=== PATIENT | male | born 1985 | race Two or more races ===

== ENCOUNTER 2019-06-03 15:16 | Inpatient (IN) | payer OTHER ==
[~2019-06-03] VITALS: Ht 170.2 cm; Wt 60.3 kg
--- NOTE | 2019-06-03 15:26 | NUR ---
PT BIBRA C/O L FLANK PAIN 10/10 +N/V. PLACED ON MONITOR AND PULSE OX. MD AT BEDSIDE. LABS COLLECTED AND SENT TO LAB.
[2019-06-03] MEDS ORDERED: KETOROLAC TROMETHAMINE INJ 30 MG/ML VIAL IV ONE (15:30)
[2019-06-03] MEDS ORDERED: IV NS 0.9% 1,000 ML BAG IV ONE (15:30)
[2019-06-03] MEDS ORDERED: ONDANSETRON HCL/PF 4 MG/2 ML VIAL ONE (15:30)
[2019-06-03] MEDS ORDERED: KETOROLAC TROMETHAMINE 15 MG/ML VIAL ONE (15:30)
[2019-06-03] MEDS ORDERED: ONDANSETRON HCL/PF 4 MG/2 ML VIAL IVP ONE (15:30)
[2019-06-03 15:35] LABS: BASOPHILS # (AUTO) 0.3 /CMM (0.0-0.2); BASOPHILS % (AUTO) 1.3 % (0.0-2.0); EOSINOPHILS % (AUTO) 0.6 % (0.0-6.0); HEMATOCRIT 46 % (39-51); HEMOGLOBIN 14.7 g/dL (13.5-17.5); LYMPHOCYTES # (AUTO) 3.2 /CMM (0.8-4.8); LYMPHOCYTES % (AUTO) 16.3 % (20.0-44.0); MEAN CORPUSCULAR HGB CONC 32 g/dl (31.0-36.0); MEAN CORPUSCULAR VOLUME 82 fL (80-96); NEUTROPHILS # (AUTO) 15.3 /CMM (1.8-8.9); NEUTROPHILS % (AUTO) 76.8 % (43.0-81.0); PLATELET COUNT (AUTO) 273 /CMM (150-450); RED BLOOD CELL COUNT(AUTO) 5.57 MIL/uL (4.5-6.0); WHITE BLOOD COUNT (AUTO) 19.9 K/uL (4.3-11.0)
[2019-06-03 15:45] LABS: ALBUMIN 4.5 g/dL (3.4-5.0); BILIRUBIN,DIRECT 0.1 mg/dL (0.0-0.2); BILIRUBIN,TOTAL 0.7 mg/dL (0.2-1.0); CALCIUM, SERUM 10.2 mg/dL (8.5-10.1); POTASSIUM 4.1 mmol/L (3.5-5.1); TOTAL PROTEIN, SERUM 7.9 g/dL (6.4-8.2)
--- NOTE | 2019-06-03 15:56 | NUR ---
URINE COLLECTED THROUGH CATHETER 200CC CLEAR
[2019-06-03] MEDS ORDERED: MORPHINE SULFATE INJ 2 MG/ML DISP.SYRIN IV ONE ×2 (16:00→17:30)
[2019-06-03] MEDS ORDERED: MORPHINE SULFATE INJ 4 MG/ML DISP.SYRIN ONE ×2 (16:02→17:24)
[2019-06-03 16:03] LABS: APPEARANCE,URINE Clear (CLEAR); BILIRUBIN,URINE Negative (NEGATIVE); BLOOD, URINE Negative Ery/uL (NEGATIVE); COLOR,URINE Yellow (YELLOW); KETONES,URINE 15 (NEGATIVE); LEUKOCYTE ESTERASE ,URINE Negative (NEGATIVE); NITRITE, URINE Negative (NEGATIVE); PROTEIN,URINE Negative (NEGATIVE); UGLUCOSE Negative (NEGATIVE); UROBILINOGEN,URINE 0.2 EU/dL (0.2)
[2019-06-03] MEDS ORDERED: CT SWABBABLE VALVE TRANS SET 1 EA INFUS.SET MC ONE (16:15)
[2019-06-03] MEDS ORDERED: IV NS 0.9% 250 ML IV ONE (16:15)
[2019-06-03] MEDS ORDERED: IOHEXOL-300 100 ML VIAL IV ONE (16:15)
--- NOTE | 2019-06-03 16:40 | NUR ---
PT RAFAEL TO CT
[2019-06-03] MEDS ORDERED: predniSONE 10 MG TABLET ONE (17:24)
[2019-06-03] MEDS ORDERED: predniSONE 20 MG TABLET ONE (17:25)
[2019-06-03] MEDS ORDERED: CIPROFLOXACIN IV RTU 400 MG in PREMIX 1 EA IV SCH (17:30)
[2019-06-03] MEDS ORDERED: predniSONE 50 MG TABLET PO ONE (17:30)
--- NOTE | 2019-06-03 17:32 | NUR ---
PAGED [facility].
--- NOTE | 2019-06-03 17:32 | NUR ---
CALLED NURSING SUP FOR M/S BED.
--- NOTE | 2019-06-03 17:47 | NUR ---
Patient is resting comfortably in bed. Easily aroused. VSS.
--- NOTE | 2019-06-03 17:56 | NUR ---
NURSING SUP GAVE M/S 309-2.
--- NOTE | 2019-06-03 18:13 | NUR ---
REPORT GIVEN TO LAURA CERVANTES FOR FAUSTINO.
--- NOTE | 2019-06-03 18:42 | NUR ---
PAGED EPIC SECOND TIME.
--- NOTE | 2019-06-03 19:12 | NUR ---
Patient is resting comfortably in bed. Easily aroused. VSS. PARTNER AT BEDSIDE.
[2019-06-03] MEDS ORDERED: IV NS 0.9% 1,000 ML IV PRN (19:36)
[2019-06-03] MEDS ORDERED: HYDROMORPHONE 1 MG/1 ML DISP.SYRIN ONE (19:46)
--- NOTE | 2019-06-03 19:57 | NUR ---
PT TRANSFERED TO M/S.
[2019-06-03 20:00] VITALS: BP 102/60
[2019-06-03] MEDS ORDERED: HYDROMORPHONE INJ 0.5 MG/0.5 ML SYRINGE IV PRN (20:00)
[2019-06-03] MEDS ORDERED: MORPHINE SULFATE INJ 2 MG/ML DISP.SYRIN IV PRN (20:00)
[2019-06-03] MEDS ORDERED: MAG HYDROX/AL HYDROX/SIMETH 30 ML UDC PO PRN (20:00)
[2019-06-03] MEDS ORDERED: ACETAMINOPHEN 325 MG TABLET PO PRN (20:00)
[2019-06-03] MEDS ORDERED: MAGNESIUM HYDROXIDE 30 ML UDC PO PRN (20:00)
[2019-06-03] MEDS ORDERED: Z GUARD REMEDY 2 OZ OINT TP PRN (20:00)
[2019-06-03] MEDS: ONDANSETRON HCL/PF 4 MG/2 ML VIAL IVP PRN (20:26)
[2019-06-03] MEDS: METRONIDAZOLE 500 MG TABLET PO SCH (20:26)
[2019-06-03] MEDS: ENOXAPARIN SODIUM 40 MG/0.4 ML DISP.SYRIN SQ SCH (20:35)
[2019-06-03] MEDS ORDERED: CIPROFLOXACIN HCL 250 MG TABLET PO SCH (21:00)
[2019-06-03] MEDS: HYDROCODONE/APAP 5/325MG 1 EACH TABLET PO PRN (22:24)
[2019-06-04] MEDS: ONDANSETRON HCL/PF 4 MG/2 ML VIAL IVP PRN ×4 (03:29→23:08)
[2019-06-04] MEDS: HYDROCODONE/APAP 5/325MG 1 EACH TABLET PO PRN ×2 (03:29→08:19)
[2019-06-04] MEDS: METRONIDAZOLE 500 MG TABLET PO SCH ×3 (05:21→21:07)
--- NOTE | 2019-06-04 06:26 | NUR ---
MS RN NOTES AWAKE & RESPONSIVE. NOT IN ANY DISTRESS. NO SOB NOTED. DENIES ANY PAIN OR DISCOMFORT AT THIS TIME. WITH IV-HL PATENT & INTACT. MONITORED ACCORDINGLY. CALL LIGHT WITHIN REACH. BED IN LOWEST POSITION. SR UP X 3 FOR SAFETY. WILL ENDORSE TO NEXT SHIFT.
[2019-06-04 06:47] LABS: BASOPHILS % (AUTO) 0.2 % (0.0-2.0); HEMATOCRIT 39 % (39-51); HEMOGLOBIN 12.6 g/dL (13.5-17.5); LYMPHOCYTES # (AUTO) 1.6 /CMM (0.8-4.8); MEAN CORPUSCULAR HGB CONC 32 g/dl (31.0-36.0); MEAN CORPUSCULAR VOLUME 82 fL (80-96); MONOCYTES # (AUTO) 0.5 /CMM (0.1-1.30); MONOCYTES % (AUTO) 3.2 % (2.0-12.0); NEUTROPHILS % (AUTO) 86.6 % (43.0-81.0); PLATELET COUNT (AUTO) 219 /CMM (150-450); RED BLOOD CELL COUNT(AUTO) 4.82 MIL/uL (4.5-6.0); WHITE BLOOD COUNT (AUTO) 16.1 K/uL (4.3-11.0)
[2019-06-04 07:05] LABS: THYROID STIMULATING HORMONE 0.411 uIU/mL (0.358-3.74)
[2019-06-04 07:29] LABS: CALCIUM, SERUM 8.7 mg/dL (8.5-10.1); CREATININE 0.9 mg/dL (0.6-1.3); POTASSIUM 3.6 mmol/L (3.5-5.1)
[2019-06-04] MEDS: CIPROFLOXACIN HCL 500 MG TABLET PO SCH ×2 (08:19→21:07)
[2019-06-04] MEDS: predniSONE 20 MG TABLET PO SCH (08:19)
[2019-06-04 08:26] VITALS: BP 148/59
[2019-06-04] MEDS ORDERED: TAMS-12 PO (09:41)
[2019-06-04] MEDS ORDERED: CLON0.5T4 PO (09:41)
[2019-06-04] MEDS ORDERED: clonazePAM 0.5 MG TABLET PO PRN (12:00)
[2019-06-04] MEDS: HYDROMORPHONE 1 MG/1 ML DISP.SYRIN IV PRN ×3 (12:45→23:08)
[2019-06-04 16:15] VITALS: BP 102/69
--- NOTE | 2019-06-04 19:05 | NUR ---
MS RN NOTE RECEIVED PT IN STABLE CONDITION A/O X 4, GUEST AT BEDSIDE. NO SIGNS OF SOB OR DISTRESS, NO C/O PAIN OR NAUSEA. IV IN R AC #[address] WITH IVF INFUSING. ALL CURRENT NEEDS ATTENDED TO. BED LOW, LOCKED, UPPER RAILS UP, AND CALL LIGHT WITHIN REACH, WILL CONT. TO MONITOR.
[2019-06-04 20:00] VITALS: BP 107/63
[2019-06-04] MEDS: ENOXAPARIN SODIUM 40 MG/0.4 ML DISP.SYRIN SQ SCH (21:07)
--- NOTE | 2019-06-04 22:10 | NUR ---
RN NOTES: RECEIVED REPORT FROM DUNIA CERVANTES. PT MOVED TO MS 2/RM 206-2, ALL BELONGINGS SENT WITH PT UPON TRANSFER. SAFETY PRECAUTIONS FOR FALL INITIATED, CALL LIGHT IN REACH, WILL CONTINUE MONITORING PT.
--- NOTE | 2019-06-04 22:55 | NUR ---
RN NOTES: UNABLE TO PULL OUT MEDICATION IN [facility], PT'S MED NOT SHOWING ON PRN LIST. PT FROM [facility], JUST MOVED TO MS 2. PT REQUESTING FOR ZOFRAN AND DILAUDID. INFORMED RN [facility] FOR HELP. WILL PULL OUT MEDS IN [facility].
[2019-06-04] MEDS ORDERED: ONDANSETRON HCL/PF 4 MG/2 ML VIAL ONE (23:05)
[2019-06-04] MEDS ORDERED: HYDROMORPHONE 1 MG/1 ML DISP.SYRIN ONE (23:06)
--- NOTE | 2019-06-04 23:09 | NUR ---
PRN ZOFRAN, DILAUDID: PT C/O NAUSEA AND ABDL PAIN, REQUESTING FOR ZOFRAN AND DILAUDID. PRN ZOFRAN 4MG IVP ADMINISTERED AT THIS TIME. DILAUDID 1MG IVP ADMINISTERED FOR C/O ABDL PAIN. WILL CONTINUE TO MONITOR AND REASSESS PT.
--- NOTE | 2019-06-05 | NUR ---
rn notes: pt requested for heating pad for abdomen area, informed pt no heatig pad available. warm compress offered and given to pt. education provided regarding use of warm compress.
[2019-06-05] MEDS: HYDROCODONE/APAP 5/325MG 1 EACH TABLET PO PRN ×2 (01:07→05:04)
--- NOTE | 2019-06-05 01:07 | NUR ---
prn norco: pt c/o pain stated his dilaudid didnt help with pain and would like to have another dilaudid. informed pt dilaudid is prn q4hrs, available is norco and tylenol. per pt he will take norco. prn norco administered for c/o abdl pain.
--- NOTE | 2019-06-05 01:34 | NUR ---
rn notes: notifed barrel bung remover and dumper formulation scientist lopez regarding pt's complaint of pain and insisting for his dilaudid to be increase, per DIE MECHANIC, he knows the pt and admitted him last night. appears to have seeking behavior, should not be on iv dilaudid, and will not order for more iv dilaudid. no orders received.
[2019-06-05] MEDS: HYDROMORPHONE 1 MG/1 ML DISP.SYRIN IV PRN ×2 (03:06→08:13)
--- NOTE | 2019-06-05 03:06 | NUR ---
prn dilaudid: pt c/o abdl pain 02/06, requesting for dilaudid, prn dilaudid 1mg administered. will continue to monitor and reassess
[2019-06-05] MEDS: METRONIDAZOLE 500 MG TABLET PO SCH (05:03)
[2019-06-05] MEDS: ONDANSETRON HCL/PF 4 MG/2 ML VIAL IVP PRN (05:03)
--- NOTE | 2019-06-05 05:04 | NUR ---
prn zofran and norco: pt stated before he take the pill medication, he would like to request for zofran, as pt claimed "he's feeling nauseated taking huge pills". informed pt he can take the pill later once nausea subside, however pt said, he wants his norco now, so he could have dilaudid iv at 0700am, he's also requesting for klonopin at this time. informed pt he needs to choose among the medication he really needed, as those needs to be space out within an hour. pt got rattled, decided he will just chose zofran and norco, and will wait for klonopin. prn norco administered for c/o 7/10 abdl pain, as pt claimed he has pain, and prn zofran for c/o "being nauseated taking huge pills."
--- NOTE | 2019-06-05 06:02 | NUR ---
prn klonopin: pt request klonopin for c/o anxiety. prn klonopin tab administered.
--- NOTE | 2019-06-05 07:07 | NUR ---
RN CLOSING NOTES: PT REMAINS WITH C/O ABDL PAIN, / PRN DILAUDID ADMINISTERED PER PT REQUEST. IV ACCESS REMAINS PATENT AND FLUSHING WELL, INFUISNG WITH IVF ORDERED. NO S/S OF IV INFILTRATION NOTED. TOLERATED CLEAR LIQUID DIET WELL. FOR DC TODAY. VS REMAINS STABLE, NEEDS ATTENDED. SAFETY PRECAUTIONS FOR FALL REMAINS ENGAGED, CALL LIGHT IN REACH, WILL ENDORSE TO DAY RN FOR CONTINUITY OF CARE.
--- NOTE | 2019-06-05 07:30 | NUR ---
RN MS NOTES PT IN BED, AWAKE, ALERT AND ORIENTED, NOT IN DISTRESS, STATED THAT HE STILL HAS 7/10 ABDOMINAL PAIN, NO NAUSEA/VOMITING, ABLE TO WALK TO THE BATHROOM WITH STEADY GAIT, IV FLUIDS INFUSING WELL, NEEDS ATTENDED, CALL LIGHT WITHIN REACH.
[2019-06-05 07:31] LABS: BASOPHILS # (AUTO) 0.1 /CMM (0.0-0.2); BASOPHILS % (AUTO) 0.7 % (0.0-2.0); EOSINOPHILS % (AUTO) 1.2 % (0.0-6.0); HEMATOCRIT 37 % (39-51); HEMOGLOBIN 12.1 g/dL (13.5-17.5); LYMPHOCYTES # (AUTO) 3.1 /CMM (0.8-4.8); LYMPHOCYTES % (AUTO) 30.6 % (20.0-44.0); MEAN CORPUSCULAR HGB CONC 32 g/dl (31.0-36.0); MEAN CORPUSCULAR VOLUME 82 fL (80-96); MONOCYTES % (AUTO) 9.6 % (2.0-12.0); NEUTROPHILS # (AUTO) 5.9 /CMM (1.8-8.9); NEUTROPHILS % (AUTO) 57.9 % (43.0-81.0); PLATELET COUNT (AUTO) 194 /CMM (150-450); RED BLOOD CELL COUNT(AUTO) 4.57 MIL/uL (4.5-6.0); WHITE BLOOD COUNT (AUTO) 10.1 K/uL (4.3-11.0)
[2019-06-05 07:53] LABS: POTASSIUM 3.8 mmol/L (3.5-5.1)
[2019-06-05 08:00] VITALS: BP 111/71
[2019-06-05] MEDS: CIPROFLOXACIN HCL 500 MG TABLET PO SCH (08:13)
[2019-06-05] MEDS: predniSONE 20 MG TABLET PO SCH (08:13)
[2019-06-05] MEDS ORDERED: TAMSULOSIN 0.4 MG CAP.SR.24H PO SCH (09:00)
[2019-06-05] MEDS ORDERED: ONDA4TAB5 PO (10:06)
[2019-06-05] MEDS ORDERED: HYDR-4384 PO (10:06)
[2019-06-05] MEDS ORDERED: CIPR500T5 PO (10:06)
--- NOTE | 2019-06-05 10:51 | NUR ---
RN MS NOTES PT AWAKE, SITTING IN HIS CHAIR, AMBULATES WITH STEADY GAIT TO THE BATHROOM, NO COMPLAINT OF PAIN, NO COMPLAINT OF NAUSEA OR VOMITING, DENIES BLADDER DISCOMFORT, VOIDING WELL, SEEN AND EXAMINED BY DR. MIRZA, DISCHARGE ORDER GIVEN, PT STATED THAT HE WILL FOLLOW UP WITH HIS PRIMARY CARE PHYSICIAN WITHIN THE WEEK AND WILL ASK FOR A GI REFERRAL, DISCHARGE AND MEDICATION INSTRUCTIONS PROVIDED TO PT, VERBALIZED UNDERSTANDING, PRESCRIPTION PROVIDED TO PT, ALL BELONGINGS ACCOUNTED FOR, ASSISTED TO HOSPITAL LOBBY, PICKED UP BY FRIEND, LEFT VIA PRIVATE CAR IN STABLE CONDITION.
== END 2019-06-05 10:15 | disposition home or self-care (01) | DRG 392 ==
LOC: ER 15:19 → MED 18:10 → MEDSG2 06-04 22:10
PROVIDERS: ADMIT Registered Nurse; ATTEND Nurse Practitioner Acute Care
DX: A09 Infectious gastroenteritis and colitis, unspecified (principal); F32.9 Major depressive disorder, single episode, unspecified; F41.9 Anxiety disorder, unspecified; D72.829 Elevated white blood cell count, unspecified; R73.9 Hyperglycemia, unspecified; K58.9 Irritable bowel syndrome, unspecified
CPT/HCPCS: 36415; 80048-TC; 80061-TC; 80076-TC; 81000-TC; 82962-TC; 83690-TC; 83735-TC; 84100-TC; 84443-TC; 85025-TC; 85652-TC; 86140-TC; 87081-TC; A4216; G0378; J0744; J1170; J1650; J1885; J2270; J2405; J7030; J7050; Q9967

== ENCOUNTER 2019-06-08 16:12 | Emergency (ER) | payer OTHER ==
[~2019-06-08] VITALS: Ht 170.2 cm; Wt 59.0 kg
[~2019-06-08 16:12] MED LIST: CIPR500T5 PO; CLON0.5T4 PO; HYDR-4384 PO; ONDA4TAB5 PO; TAMS-12 PO
--- NOTE | 2019-06-08 16:12 | NUR ---
c/o LLQ abdominal pain, nausea and vomiting since 1200 noon Patient was discharged 3 days Dx: Colitis, PT TO BED 7, AWAKE, ALERT, -SOB, NAD NOTED ,PENDING MD MUELLER
[2019-06-08] MEDS ORDERED: HYDROMORPHONE 1 MG/1 ML DISP.SYRIN ONE ×2 (17:15→17:28)
[2019-06-08] MEDS ORDERED: ONDANSETRON HCL/PF 4 MG/2 ML VIAL ONE (17:15)
[2019-06-08 17:20] LABS: BASOPHILS # (AUTO) 0.1 /CMM (0.0-0.2); BASOPHILS % (AUTO) 0.9 % (0.0-2.0); HEMATOCRIT 42 % (39-51); HEMOGLOBIN 13.5 g/dL (13.5-17.5); LYMPHOCYTES # (AUTO) 2.3 /CMM (0.8-4.8); LYMPHOCYTES % (AUTO) 15.7 % (20.0-44.0); MEAN CORPUSCULAR HGB CONC 32 g/dl (31.0-36.0); MEAN CORPUSCULAR VOLUME 82 fL (80-96); MONOCYTES # (AUTO) 0.7 /CMM (0.1-1.30); NEUTROPHILS # (AUTO) 11.5 /CMM (1.8-8.9); NEUTROPHILS % (AUTO) 76.4 % (43.0-81.0); PLATELET COUNT (AUTO) 238 /CMM (150-450); RED BLOOD CELL COUNT(AUTO) 5.16 MIL/uL (4.5-6.0)
[2019-06-08] MEDS ORDERED: ONDANSETRON HCL/PF 4 MG/2 ML VIAL IVP ONE (17:30)
[2019-06-08] MEDS ORDERED: HYDROMORPHONE 1 MG/1 ML DISP.SYRIN IV ONE (17:30)
[2019-06-08] MEDS ORDERED: IV NS 0.9% 1,000 ML BAG IV ONE (17:30)
[2019-06-08] MEDS ORDERED: HYDROMORPHONE INJ 2 MG/ML DISP.SYRIN IV ONE (17:30)
[2019-06-08 17:38] LABS: ALBUMIN 3.9 g/dL (3.4-5.0); BILIRUBIN,DIRECT 0.1 mg/dL (0.0-0.2); BILIRUBIN,TOTAL 0.2 mg/dL (0.2-1.0); POTASSIUM 4.1 mmol/L (3.5-5.1); TOTAL PROTEIN, SERUM 7.2 g/dL (6.4-8.2)
[2019-06-08 18:25] VITALS: BP 109/70
[2019-06-08 18:25] LABS: APPEARANCE,URINE CLEAR (CLEAR); BILIRUBIN,URINE NEGATIVE (NEGATIVE); BLOOD, URINE NEGATIVE Ery/uL (NEGATIVE); COLOR,URINE YELLOW (YELLOW); KETONES,URINE NEGATIVE (NEGATIVE); LEUKOCYTE ESTERASE ,URINE NEGATIVE (NEGATIVE); NITRITE, URINE NEGATIVE (NEGATIVE); PROTEIN,URINE NEGATIVE (NEGATIVE); UGLUCOSE NEGATIVE (NEGATIVE); UROBILINOGEN,URINE 0.2 EU/dL (0.2)
--- NOTE | 2019-06-08 18:59 | NUR ---
pt taken to ct
[2019-06-08] MEDS ORDERED: IOHEXOL-300 100 ML VIAL IV ONE (19:01)
[2019-06-08] MEDS ORDERED: IV NS 0.9% 250 ML IV ONE (19:02)
[2019-06-08] MEDS ORDERED: CT SWABBABLE VALVE TRANS SET 1 EA INFUS.SET MC ONE (19:02)
--- NOTE | 2019-06-08 20:36 | NUR ---
Patient discharged to home in stable condition. Written and verbal after care instructions given. Patient verbalizes understanding of instruction. IV removed. Catheter intact and site benign. Pressure and 4x4 applied to site. No bleeding noted.
== END 2019-06-08 20:38 | disposition home or self-care (01) ==
LOC: ER 16:12
DX: K52.9 Noninfective gastroenteritis and colitis, unspecified (principal); R11.2 Nausea with vomiting, unspecified; Z79.899 Other long term (current) drug therapy
CPT/HCPCS: 36415; 74177; 80048; 80076; 81001; 83605; 83690; 85025; 85730; 87040 ×2; 96361; 96374; 96375; 99284; J1170 ×2; J2405; J7030; J7050; Q9967; 81000-TC

== ENCOUNTER 2019-08-19 16:41 | Emergency (ER) | payer OTHER ==
[~2019-08-19] VITALS: Ht 167.6 cm; Wt 60.8 kg
[2019-08-19] MEDS ORDERED: HYDROMORPHONE 1 MG/1 ML DISP.SYRIN ONE ×3 (17:26→18:31)
[2019-08-19] MEDS ORDERED: ONDANSETRON HCL/PF 4 MG/2 ML VIAL ONE (17:26)
[2019-08-19] MEDS ORDERED: IV NS 0.9% 1,000 ML BAG IV ONE (17:30)
[2019-08-19] MEDS ORDERED: ONDANSETRON HCL/PF 4 MG/2 ML VIAL IVP ONE (17:30)
[2019-08-19] MEDS ORDERED: HYDROMORPHONE INJ 2 MG/ML DISP.SYRIN IV ONE (17:30)
--- NOTE | 2019-08-19 17:32 | NUR ---
NAUSEA, VOMITING, AND ABDOMINAL PAIN SINCE THIS AFTERNOON. REPORTS PAIN LEVEL 10/10, SHARP, RADIATES TO LOW BACK. ALSO REPORTS VOMITING COFFEE-GROUND EMESIS. PT PRESENTS DOUBLED OVER IN SEVERE PAIN. AOX4, AMBULATORY, VSS, RR EVEN AND UNLABORED ON RA. PARTNER AT BEDSIDE. ON MONITOR AND READY FOR EVAL.
[2019-08-19 17:35] LABS: BASOPHILS # (AUTO) 0.3 /CMM (0.0-0.2); BASOPHILS % (AUTO) 1.7 % (0.0-2.0); EOSINOPHILS % (AUTO) 0.7 % (0.0-6.0); HEMATOCRIT 45 % (39-51); HEMOGLOBIN 14.5 g/dL (13.5-17.5); LYMPHOCYTES # (AUTO) 1.8 /CMM (0.8-4.8); MEAN CORPUSCULAR HGB CONC 33 g/dl (31.0-36.0); MEAN CORPUSCULAR VOLUME 82 fL (80-96); MONOCYTES # (AUTO) 0.5 /CMM (0.1-1.30); MONOCYTES % (AUTO) 3.3 % (2.0-12.0); NEUTROPHILS # (AUTO) 12.4 /CMM (1.8-8.9); NEUTROPHILS % (AUTO) 82.3 % (43.0-81.0); PLATELET COUNT (AUTO) 249 /CMM (150-450); RED BLOOD CELL COUNT(AUTO) 5.47 MIL/uL (4.5-6.0)
[2019-08-19 17:40] LABS: CALCIUM, SERUM 9.6 mg/dL (8.5-10.1); CREATININE 1.1 mg/dL (0.6-1.3); POTASSIUM 3.9 mmol/L (3.5-5.1)
[2019-08-19 17:45] LABS: ALBUMIN 4.5 g/dL (3.4-5.0); BILIRUBIN,DIRECT 0.1 mg/dL (0.0-0.2); BILIRUBIN,TOTAL 0.4 mg/dL (0.2-1.0)
[2019-08-19] MEDS ORDERED: HYDROMORPHONE 1 MG/1 ML DISP.SYRIN IV ONE ×2 (18:00→18:30)
--- NOTE | 2019-08-19 18:04 | NUR ---
PARTNER JOHANNY: [phone]
--- NOTE | 2019-08-19 18:39 | NUR ---
GAVE PT ICE CHIPS. OK PER WEBMETHODS ARCHITECT
--- NOTE | 2019-08-19 19:32 | NUR ---
Patient discharged to home in stable condition. Written and verbal after care instructions given. Patient verbalizes understanding of instruction.IV removed. Catheter intact and site benign. Pressure and 4x4 applied to site. No bleeding noted.
[2019-08-19 19:42] VITALS: BP 127/76
== END 2019-08-19 19:35 | disposition home or self-care (01) ==
LOC: ER 16:46
DX: K52.9 Noninfective gastroenteritis and colitis, unspecified (principal); R61 Generalized hyperhidrosis; Z79.899 Other long term (current) drug therapy
CPT/HCPCS: 36415; 80048; 80076; 83690; 85025; 85730; 96361; 96374; 96375; 96376; 99284; J1170 ×3; J2405; J7030

== ENCOUNTER 2019-09-11 07:43 | Emergency (ER) | payer OTHER ==
[~2019-09-11] VITALS: Ht 170.2 cm; Wt 59.0 kg
--- NOTE | 2019-09-11 07:45 | NUR ---
BIB SELF C/O L FLANK PAIN AND VOMITING STARTED LAST NIGHT, SEEN HERE LAST MONTH FOR COLITIS. TO ER BED 9, HOOKED TO MONITOR. CHANGED TO HOSP GOWN, WARM BLABKET PROVIDED, PATIENT AOx4 , PATIENT NOTED DIAPHORETIC. DR MCDONALD AT BEDSIDE.
[2019-09-11] MEDS ORDERED: MORPHINE SULFATE INJ 4 MG/ML DISP.SYRIN ONE (08:00)
[2019-09-11] MEDS ORDERED: ONDANSETRON HCL/PF 4 MG/2 ML VIAL ONE (08:00)
[2019-09-11] MEDS ORDERED: ACETAMINOPHEN ES 500 MG TABLET ONE (08:01)
[2019-09-11] MEDS: MORPHINE SULFATE INJ 2 MG/ML DISP.SYRIN IV ONE (08:07)
[2019-09-11] MEDS: ONDANSETRON HCL/PF 4 MG/2 ML VIAL IVP ONE (08:08)
[2019-09-11] MEDS: IV NS 0.9% 1,000 ML BAG IV ONE (08:08)
[2019-09-11 08:11] LABS: BASOPHILS # (AUTO) 0.1 /CMM (0.0-0.2); BASOPHILS % (AUTO) 1.4 % (0.0-2.0); EOSINOPHILS % (AUTO) 2.9 % (0.0-6.0); HEMATOCRIT 45 % (39-51); HEMOGLOBIN 14.5 g/dL (13.5-17.5); LYMPHOCYTES # (AUTO) 3.4 /CMM (0.8-4.8); LYMPHOCYTES % (AUTO) 34.9 % (20.0-44.0); MEAN CORPUSCULAR HGB CONC 32 g/dl (31.0-36.0); MEAN CORPUSCULAR VOLUME 82 fL (80-96); MONOCYTES # (AUTO) 0.6 /CMM (0.1-1.30); MONOCYTES % (AUTO) 6.1 % (2.0-12.0); NEUTROPHILS # (AUTO) 5.4 /CMM (1.8-8.9); NEUTROPHILS % (AUTO) 54.7 % (43.0-81.0); PLATELET COUNT (AUTO) 256 /CMM (150-450); RED BLOOD CELL COUNT(AUTO) 5.45 MIL/uL (4.5-6.0); WHITE BLOOD COUNT (AUTO) 9.9 K/uL (4.3-11.0)
[2019-09-11 08:12] LABS: CALCIUM, SERUM 9.5 mg/dL (8.5-10.1); POTASSIUM 3.7 mmol/L (3.5-5.1)
--- NOTE | 2019-09-11 08:15 | NUR ---
WHEELED OUT VIA RNEY FOR CT SCAN
--- NOTE | 2019-09-11 08:16 | NUR ---
Stevie avitia in [facility] - 09/11/19 at 1136 by RADHA RECEIVED VERBAL ORDER FROM DR MCDONALD OF DILAUDID 1MG IVP. CARRIED OUT.
[2019-09-11 08:18] LABS: ALBUMIN 4.1 g/dL (3.4-5.0); BILIRUBIN,DIRECT 0.1 mg/dL (0.0-0.2); BILIRUBIN,TOTAL 0.2 mg/dL (0.2-1.0); TOTAL PROTEIN, SERUM 7.4 g/dL (6.4-8.2)
[2019-09-11] MEDS ORDERED: HYDROMORPHONE 1 MG/1 ML DISP.SYRIN ONE ×2 (08:45→10:17)
[2019-09-11] MEDS: HYDROMORPHONE 1 MG/1 ML DISP.SYRIN IV ONE (08:47)
[2019-09-11 08:54] LABS: APPEARANCE,URINE Cloudy (CLEAR); BILIRUBIN,URINE Negative (NEGATIVE); BLOOD, URINE Negative Ery/uL (NEGATIVE); COLOR,URINE Yellow (YELLOW); KETONES,URINE Negative (NEGATIVE); LEUKOCYTE ESTERASE ,URINE Negative (NEGATIVE); NITRITE, URINE Negative (NEGATIVE); PH,URINE 8.5 (5.0-8.0); PROTEIN,URINE Negative (NEGATIVE); UGLUCOSE Negative (NEGATIVE); UROBILINOGEN,URINE 0.2 EU/dL (0.2)
[2019-09-11] MEDS: ACETAMINOPHEN ES 500 MG TABLET PO ONE (09:48)
[2019-09-11] MEDS: HYDROMORPHONE INJ 0.5 MG/0.5 ML SYRINGE IV ONE (10:16)
--- NOTE | 2019-09-11 10:16 | NUR ---
RECEIVED VERBAL ORDER FROM DR MCDONALD OF DILAUDID 1MG IVP. CARRIED OUT.
--- NOTE | 2019-09-11 12:24 | NUR ---
IV removed. Catheter intact and site benign. Pressure and 4x4 applied to site. No bleeding noted.Patient discharged to home in stable condition. Written and verbal after care instructions given. Patient verbalizes understanding of instruction.
[2019-09-11 12:29] VITALS: BP 117/51
== END 2019-09-11 12:30 | disposition home or self-care (01) ==
LOC: ER 07:45
DX: R10.32 Left lower quadrant pain (principal); R10.12 Left upper quadrant pain; R11.2 Nausea with vomiting, unspecified; Z79.899 Other long term (current) drug therapy
CPT/HCPCS: 36415; 74176; 80048; 80076; 81001; 83690; 85025; 96361; 96374; 96375; 96376; 99285; J1170 ×2; J2270; J2405; J7030; 81000-TC

== ENCOUNTER 2019-09-17 06:33 | Emergency (ER) | payer OTHER ==
[~2019-09-17] VITALS: Ht 170.2 cm; Wt 59.0 kg
--- NOTE | 2019-09-17 06:40 | NUR ---
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 PT AAOX4, VSS AT THIS TIME, RR EVEN AND UNLABORED ON RA W/ NAD NOTED. PT CONNECTED TO THE MONITOR AND POX
[2019-09-17] MEDS ORDERED: KETOROLAC TROMETHAMINE 15 MG/ML VIAL ONE ×2 (06:45→07:39)
[2019-09-17] MEDS ORDERED: ONDANSETRON HCL/PF 4 MG/2 ML VIAL ONE (06:45)
--- NOTE | 2019-09-17 06:46 | NUR ---
JOHANNY (PARTNER) CONTACT INFORMATION: [phone]
--- NOTE | 2019-09-17 06:50 | NUR ---
BLOOD DRAWN AND SENT TO LAB
[2019-09-17 06:59] LABS: BASOPHILS # (AUTO) 0.2 /CMM (0.0-0.2); EOSINOPHILS % (AUTO) 2.8 % (0.0-6.0); HEMATOCRIT 45 % (39-51); HEMOGLOBIN 14.4 g/dL (13.5-17.5); LYMPHOCYTES # (AUTO) 4.1 /CMM (0.8-4.8); LYMPHOCYTES % (AUTO) 26.8 % (20.0-44.0); MEAN CORPUSCULAR HGB CONC 32 g/dl (31.0-36.0); MEAN CORPUSCULAR VOLUME 82 fL (80-96); MONOCYTES # (AUTO) 0.6 /CMM (0.1-1.30); MONOCYTES % (AUTO) 3.9 % (2.0-12.0); NEUTROPHILS % (AUTO) 65.5 % (43.0-81.0); PLATELET COUNT (AUTO) 245 /CMM (150-450); RED BLOOD CELL COUNT(AUTO) 5.47 MIL/uL (4.5-6.0); WHITE BLOOD COUNT (AUTO) 15.3 K/uL (4.3-11.0)
[2019-09-17] MEDS ORDERED: ONDANSETRON HCL/PF 4 MG/2 ML VIAL IVP ONE (07:00)
[2019-09-17] MEDS ORDERED: KETOROLAC TROMETHAMINE INJ 30 MG/ML VIAL IV ONE ×2 (07:00→08:00)
[2019-09-17] MEDS ORDERED: IV NS 0.9% 1,000 ML BAG IV ONE ×2 (07:00→07:30)
[2019-09-17 07:05] LABS: CALCIUM, SERUM 9.4 mg/dL (8.5-10.1); CARBON DIOXIDE 24 mmol/L (21-32); CHLORIDE 105 mmol/L (98-107); CREATININE 1.1 mg/dL (0.6-1.3); GLUCOSE 122 mg/dL (74-106); POTASSIUM 3.9 mmol/L (3.5-5.1); SODIUM SERUM 142 mmol/L (136-145); UREA NITROGEN, BLOOD 16 mg/dL (7-18)
[2019-09-17 07:11] LABS: ALANINE AMINOTRANSFERASE 26 U/L (12-78); ALBUMIN 4.1 g/dL (3.4-5.0); ALKALINE PHOSPHATASE 98 U/L (46-116); ASPARTATE AMINOTRANSFERASE 13 U/L (15-37); BILIRUBIN,DIRECT 0.1 mg/dL (0.0-0.2); BILIRUBIN,TOTAL 0.5 mg/dL (0.2-1.0); LIPASE 107 U/L (73-393); TOTAL PROTEIN, SERUM 7.4 g/dL (6.4-8.2)
[2019-09-17] MEDS ORDERED: CT SWABBABLE VALVE TRANS SET 1 EA INFUS.SET MC ONE (07:18)
[2019-09-17] MEDS ORDERED: IOHEXOL-300 100 ML VIAL IV ONE (07:18)
[2019-09-17] MEDS ORDERED: IV NS 0.9% 250 ML IV ONE (07:19)
[2019-09-17] MEDS ORDERED: NS 0.9% IV STA (07:32)
[2019-09-17] MEDS ORDERED: HYDROMORPHONE IV STA (07:32)
[2019-09-17] MEDS ORDERED: HYDROMORPHONE INJ 2 MG/ML DISP.SYRIN ONE (07:41)
--- NOTE | 2019-09-17 08:06 | NUR ---
pt in bed report taken with c/o flank pain yelling about pain. pt on ns drip and ct can ordered. pt taken to ctscan where medications was given scan completed pt taken back to room pain reduced pt calm no longer yelling. md aware. will continue to monitor pt set on monitor as well vital signs updated
[2019-09-17 09:09] VITALS: BP 113/73
--- NOTE | 2019-09-17 09:13 | NUR ---
pt discharged after speaking with md given aci and prescription will f/u with GI Md. PIV removed tip inrtact. pt walked out of unit with steady gait.
== END 2019-09-17 09:15 | disposition home or self-care (01) ==
LOC: ER 06:33
DX: R10.84 Generalized abdominal pain (principal); R11.2 Nausea with vomiting, unspecified; Z87.19 Personal history of other diseases of the digestive system
CPT/HCPCS: 36415; 74177; 80048; 80076; 83605; 83690; 85025; 96361; 96365; 96375; 96376; 99285; A4216; J1170 ×2; J1885 ×2; J2405; J7030 ×2; J7050; Q9967

== ENCOUNTER 2019-12-25 15:11 | Emergency (ER) | payer OTHER ==
[~2019-12-25] VITALS: Ht 170.2 cm; Wt 54.4 kg
--- NOTE | 2019-12-25 15:23 | NUR ---
CAME IN FOR NAUSEA AND VOMITING S/P FLARE UP OF CHRONIC PELVIC PAIN, PATIENT NOTED DIAPHORETIC, TO ER BED 10, HOOKED TO MONITOR, CHANGED TO HOSP GOWN, WARM BLANKET PROVIDED, PATIENT AAO x 4, DR CARVALHO AT BEDSIDE
[2019-12-25] MEDS ORDERED: HYDROMORPHONE INJ 2 MG/ML DISP.SYRIN IV ONE ×2 (15:30→17:30)
[2019-12-25] MEDS ORDERED: KETOROLAC TROMETHAMINE INJ 30 MG/ML VIAL IV ONE (15:30)
[2019-12-25] MEDS ORDERED: IV NS 0.9% 1,000 ML BAG IV ONE (15:30)
[2019-12-25] MEDS ORDERED: ONDANSETRON HCL/PF 4 MG/2 ML VIAL IVP ONE (15:30)
[2019-12-25] MEDS ORDERED: KETOROLAC TROMETHAMINE 15 MG/ML VIAL ONE (15:44)
[2019-12-25] MEDS ORDERED: ONDANSETRON HCL/PF 4 MG/2 ML VIAL ONE (15:44)
[2019-12-25] MEDS ORDERED: HYDROMORPHONE INJ 2 MG/ML DISP.SYRIN ONE (15:44)
[2019-12-25 15:47] LABS: BASOPHILS # (AUTO) 0.1 /CMM (0.0-0.2); BASOPHILS % (AUTO) 1.2 % (0.0-2.0); HEMATOCRIT 49 % (39-51); HEMOGLOBIN 15.9 g/dL (13.5-17.5); LYMPHOCYTES # (AUTO) 4.6 /CMM (0.8-4.8); LYMPHOCYTES % (AUTO) 38.1 % (20.0-44.0); MEAN CORPUSCULAR HGB CONC 33 g/dl (31.0-36.0); MEAN CORPUSCULAR VOLUME 82 fL (80-96); MONOCYTES # (AUTO) 0.8 /CMM (0.1-1.30); MONOCYTES % (AUTO) 6.9 % (2.0-12.0); NEUTROPHILS # (AUTO) 6.4 /CMM (1.8-8.9); NEUTROPHILS % (AUTO) 52.8 % (43.0-81.0); PLATELET COUNT (AUTO) 294 /CMM (150-450); RED BLOOD CELL COUNT(AUTO) 5.97 MIL/uL (4.5-6.0); WHITE BLOOD COUNT (AUTO) 12.1 K/uL (4.3-11.0)
[2019-12-25 15:51] LABS: CALCIUM, SERUM 10.2 mg/dL (8.5-10.1); CREATININE 1.7 mg/dL (0.6-1.3); POTASSIUM 3.6 mmol/L (3.5-5.1)
[2019-12-25 15:57] LABS: ALBUMIN 4.9 g/dL (3.4-5.0); BILIRUBIN,DIRECT 0.1 mg/dL (0.0-0.2); BILIRUBIN,TOTAL 0.4 mg/dL (0.2-1.0); TOTAL PROTEIN, SERUM 8.7 g/dL (6.4-8.2)
--- NOTE | 2019-12-25 16:37 | NUR ---
PATIENT NOT ABLE TO PROVIDE URINE SAMPLE, MD MEDLEY
[2019-12-25] MEDS ORDERED: HYDROMORPHONE 1 MG/1 ML DISP.SYRIN ONE ×2 (16:55→17:21)
[2019-12-25 17:00] LABS: BILIRUBIN,URINE SMALL (NEGATIVE); BLOOD, URINE Trace-intact Ery/uL (NEGATIVE); COLOR,URINE Yellow (YELLOW); KETONES,URINE Negative (NEGATIVE); LEUKOCYTE ESTERASE ,URINE Negative (NEGATIVE); NITRITE, URINE Negative (NEGATIVE); PROTEIN,URINE 30 mg/dl (NEGATIVE); UGLUCOSE Negative (NEGATIVE); UROBILINOGEN,URINE 0.2 EU/dL (0.2)
[2019-12-25] MEDS ORDERED: HYDROMORPHONE INJ 0.5 MG/0.5 ML SYRINGE IV ONE (17:00)
[2019-12-25 17:10] LABS: APPEARANCE,URINE SLIGHTLY HAZY (CLEAR)
[2019-12-25 17:11] LABS: BACTERIA,URINE Rare /HPF (None Seen); MUCUS,URINE Moderate /LPF (None Seen); SQUAMOUS EPITHELIAL CELL,UR Few /HPF (None Seen); URINE AMORPHOUS URATE Few /HPF (None Seen)
--- NOTE | 2019-12-25 17:34 | NUR ---
SPOKEE TO FAIZA [place]O AT [phone], PARTNER WILL CLOUD SYSTEMS ADMINISTRATOR PATIENT IN WAITING ROOM, ETA 10MIN
--- NOTE | 2019-12-25 17:39 | NUR ---
IV removed. Catheter intact and site benign. Pressure and 4x4 applied to site. No bleeding noted. Patient discharged to home in stable condition. Written and verbal after care instructions given. Patient verbalizes understanding of instruction. Instructed not to drive, assisted to waiting room, partner will pharmacy picking technician patient.
[2019-12-25 17:42] VITALS: BP 119/75
== END 2019-12-25 17:42 | disposition home or self-care (01) ==
LOC: ER 15:11
DX: R10.2 Pelvic and perineal pain (principal); R11.10 Vomiting, unspecified; Z79.899 Other long term (current) drug therapy
CPT/HCPCS: 36415; 80048; 80076; 81001; 83690; 85025; 96361; 96374; 96375; 96376; 99284; J1170 ×3; J1885; J2405; J7030; 81000-TC

== ENCOUNTER 2019-12-27 05:31 | Emergency (ER) | payer OTHER ==
[~2019-12-27] VITALS: Ht 170.2 cm; Wt 59.0 kg
--- NOTE | 2019-12-27 05:40 | NUR ---
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
[2019-12-27] MEDS ORDERED: HYDROMORPHONE 1 MG/1 ML DISP.SYRIN ONE ×2 (05:45→06:53)
[2019-12-27] MEDS ORDERED: ONDANSETRON HCL/PF 4 MG/2 ML VIAL ONE ×2 (05:45→08:17)
[2019-12-27] MEDS ORDERED: IV NS 0.9% 1,000 ML BAG IV ONE (06:00)
[2019-12-27] MEDS ORDERED: ONDANSETRON HCL/PF 4 MG/2 ML VIAL IVP ONE (06:00)
[2019-12-27] MEDS ORDERED: HYDROMORPHONE 1 MG/1 ML DISP.SYRIN IV ONE (06:00)
[2019-12-27 06:05] LABS: BASOPHILS % (AUTO) 0.3 % (0.0-2.0); EOSINOPHILS % (AUTO) 3.5 % (0.0-6.0); HEMATOCRIT 46 % (39-51); HEMOGLOBIN 14.9 g/dL (13.5-17.5); LYMPHOCYTES # (AUTO) 3.9 /CMM (0.8-4.8); LYMPHOCYTES % (AUTO) 41.9 % (20.0-44.0); MEAN CORPUSCULAR HGB CONC 33 g/dl (31.0-36.0); MEAN CORPUSCULAR VOLUME 82 fL (80-96); MONOCYTES # (AUTO) 0.7 /CMM (0.1-1.30); NEUTROPHILS # (AUTO) 4.3 /CMM (1.8-8.9); NEUTROPHILS % (AUTO) 46.3 % (43.0-81.0); PLATELET COUNT (AUTO) 246 /CMM (150-450); RED BLOOD CELL COUNT(AUTO) 5.57 MIL/uL (4.5-6.0); WHITE BLOOD COUNT (AUTO) 9.2 K/uL (4.3-11.0)
[2019-12-27] MEDS ORDERED: FENTANYL PF 100MCG/2ML AMPUL ONE (06:11)
[2019-12-27] MEDS ORDERED: KETOROLAC TROMETHAMINE INJ 30 MG/ML VIAL ONE (06:20)
[2019-12-27 06:21] LABS: CALCIUM, SERUM 9.4 mg/dL (8.5-10.1); CREATININE 1.3 mg/dL (0.6-1.3); POTASSIUM 3.4 mmol/L (3.5-5.1)
--- NOTE | 2019-12-27 06:21 | NUR ---
50MCG OF FENTANYL GIVEN TO PT, 50MCG WASTED, WITNESSED BY AGUSTÍN CERVANTES
[2019-12-27 06:29] LABS: ALBUMIN 4.4 g/dL (3.4-5.0); BILIRUBIN,DIRECT 0.1 mg/dL (0.0-0.2); BILIRUBIN,TOTAL 0.7 mg/dL (0.2-1.0); TOTAL PROTEIN, SERUM 8.1 g/dL (6.4-8.2)
[2019-12-27] MEDS ORDERED: FENTANYL PF 100MCG/2ML AMPUL IV ONE (06:30)
[2019-12-27] MEDS ORDERED: KETOROLAC TROMETHAMINE INJ 30 MG/ML VIAL IV ONE (06:30)
[2019-12-27] MEDS ORDERED: HYDROMORPHONE INJ 0.5 MG/0.5 ML SYRINGE IV ONE (07:00)
[2019-12-27 08:31] VITALS: BP 102/45
[2019-12-27] MEDS ORDERED: ONDANSETRON HCL/PF - ER 4 MG/2 ML VIAL IV ONE (09:00)
== END 2019-12-27 08:32 | disposition home or self-care (01) ==
LOC: ER 05:33
DX: R10.2 Pelvic and perineal pain (principal); G89.29 Other chronic pain; Z79.899 Other long term (current) drug therapy
CPT/HCPCS: 36415; 80048; 80076; 83690; 85025; 96374; 96375; 96376; 99284; J1170 ×2; J1885; J2405 ×3; J3010; J7030

== ENCOUNTER 2019-12-30 01:02 | Emergency (ER) | payer OTHER ==
[~2019-12-30] VITALS: Ht 170.2 cm; Wt 59.0 kg
--- NOTE | 2019-12-30 01:10 | NUR ---
BIBS FOR C/O L FLANK PAIN RADITING TO THE RLQ. + DYSURIA AND TROUBLE URINATING. +N/V, PT REPORTED HX OF RENAL STONE LAST YEAR. PT WAS PLACED ON A MONITOR . VSS. WILL CONT TO MONITOR
--- NOTE | 2019-12-30 01:13 | NUR ---
AT THE BED SIDE
[2019-12-30] MEDS ORDERED: HYDROMORPHONE 1 MG/1 ML DISP.SYRIN ONE ×2 (01:18→02:23)
[2019-12-30] MEDS ORDERED: HALOPERIDOL LACTATE INJ 5 MG/ML VIAL ONE (01:18)
[2019-12-30] MEDS ORDERED: LORAZEPAM INJ 2 MG/ML VIAL ONE (01:19)
[2019-12-30] MEDS: IV NS 0.9% 1,000 ML BAG IV ONE (01:27)
[2019-12-30] MEDS: HALOPERIDOL LACTATE INJ 5 MG/ML VIAL IV ONE (01:27)
[2019-12-30] MEDS: LORAZEPAM INJ 2 MG/ML VIAL IV ONE (01:28)
[2019-12-30] MEDS: HYDROMORPHONE INJ 2 MG/ML DISP.SYRIN IV ONE (01:28)
[2019-12-30 01:33] LABS: BASOPHILS # (AUTO) 0.1 /CMM (0.0-0.2); BASOPHILS % (AUTO) 0.5 % (0.0-2.0); EOSINOPHILS % (AUTO) 3.1 % (0.0-6.0); HEMATOCRIT 48 % (39-51); HEMOGLOBIN 15.5 g/dL (13.5-17.5); LYMPHOCYTES # (AUTO) 4.8 /CMM (0.8-4.8); MEAN CORPUSCULAR HGB CONC 33 g/dl (31.0-36.0); MEAN CORPUSCULAR VOLUME 82 fL (80-96); MONOCYTES # (AUTO) 0.8 /CMM (0.1-1.30); MONOCYTES % (AUTO) 7.8 % (2.0-12.0); NEUTROPHILS # (AUTO) 4.7 /CMM (1.8-8.9); NEUTROPHILS % (AUTO) 43.6 % (43.0-81.0); PLATELET COUNT (AUTO) 262 /CMM (150-450); RED BLOOD CELL COUNT(AUTO) 5.82 MIL/uL (4.5-6.0); WHITE BLOOD COUNT (AUTO) 10.7 K/uL (4.3-11.0)
[2019-12-30 01:45] LABS: ALBUMIN 4.6 g/dL (3.4-5.0); BILIRUBIN,DIRECT 0.1 mg/dL (0.0-0.2); BILIRUBIN,TOTAL 0.3 mg/dL (0.2-1.0); TOTAL PROTEIN, SERUM 8.4 g/dL (6.4-8.2)
[2019-12-30] MEDS: HYDROMORPHONE 1 MG/1 ML DISP.SYRIN IV ONE (02:26)
--- NOTE | 2019-12-30 03:00 | NUR ---
Patient discharged to home in stable condition. Written and verbal after care instructions given. Patient verbalizes understanding of instruction. IV removed. Catheter intact and site benign. Pressure and 4x4 applied to site. No bleeding noted. Pt ambulated with steady gait, vss.
[2019-12-30 03:01] VITALS: BP 126/82
== END 2019-12-30 03:01 | disposition home or self-care (01) ==
LOC: ER 01:02
DX: R10.84 Generalized abdominal pain (principal); G89.29 Other chronic pain; Z79.899 Other long term (current) drug therapy
CPT/HCPCS: 36415; 80076; 83690; 85025; 96374; 96375; 96376; 99284; J1170 ×2; J1630; J2060; J7030

== ENCOUNTER 2019-12-31 06:28 | Emergency (ER) | payer OTHER ==
[~2019-12-31] VITALS: Ht 170.2 cm; Wt 59.2 kg
[2019-12-31 06:34] VITALS: BP 146/98
[2019-12-31] MEDS ORDERED: KETOROLAC TROMETHAMINE INJ 30 MG/ML VIAL ONE (06:38)
--- NOTE | 2019-12-31 06:38 | NUR ---
MD AT BEDSIDE FOR EVALUATION
[2019-12-31] MEDS: KETOROLAC TROMETHAMINE INJ 60 MG/2 ML VIAL IM ONE (06:42)
--- NOTE | 2019-12-31 06:45 | NUR ---
PT C/O URINARY RETENTION. PT STATES "YOU NEED TO HELP ME I HAVEN'T URINATED SINCE FRIDAY" PERFORMED BLADDER SCANNER, VOLUME 0 ML. AWARE.
--- NOTE | 2019-12-31 06:49 | NUR ---
pt refused blood draw at this time. risk and benefits explained x3. pt verbalized understanding. pt still refused blood draw. dr. romero aware.
--- NOTE | 2019-12-31 07:00 | NUR ---
Stevie avitia in ED - 12/31/19 at 0700 by DAVION Patient discharged to home in stable condition. Written and verbal after care instructions given. Patient verbalizes understanding of instruction.Pt ambulatory with a steady gait
--- NOTE | 2019-12-31 07:00 | NUR ---
PT MEDICALLY CLEARED FOR DISCHARGE. AMBULATORY WITH STEADY GAIT. PT LEFT WITHOUT ACI INSTRUCTIONS.
== END 2019-12-31 07:00 | disposition home or self-care (01) ==
LOC: ER 06:28
DX: R10.2 Pelvic and perineal pain (principal); G89.29 Other chronic pain; Z79.899 Other long term (current) drug therapy
CPT/HCPCS: 96372; 99283; J1885